=== PATIENT | female | born 1945 | race Caucasian/White ===

== ENCOUNTER 2019-07-01 10:56 | Emergency (ER) | payer MEDICARE, BC ==
[~2019-07-01] VITALS: Ht 167.6 cm; Wt 64.0 kg
--- NOTE | 2019-07-01 11:14 | NUR ---
X-RAY AT BEDSIDE.
--- NOTE | 2019-07-01 11:14 | NUR ---
[id number] C/O R WRIST PAIN/SWELLING, GLF LAST NIGHT. PT STATES, MISSED DIALYSIS YESTERDAY. PATIENT A/OX4, BREATHING EVEN AND UNLABORED, NO SOB NOTED, NEEDS ATTENDED.
[2019-07-01 11:27] LABS: BASOPHILS % (AUTO) 0.5 % (0.0-2.0); EOSINOPHILS % (AUTO) 0.1 % (0.0-6.0); HEMATOCRIT 34 % (33-45); LYMPHOCYTES # (AUTO) 0.7 /CMM (0.8-4.8); LYMPHOCYTES % (AUTO) 12.7 % (20.0-44.0); MEAN CORPUSCULAR HGB CONC 33 g/dl (31.0-36.0); MEAN CORPUSCULAR VOLUME 99 fL (82-100); MONOCYTES # (AUTO) 0.9 /CMM (0.1-1.30); NEUTROPHILS # (AUTO) 4.1 /CMM (1.8-8.9); NEUTROPHILS % (AUTO) 71.7 % (43.0-81.0); PLATELET COUNT (AUTO) 104 /CMM (150-450); WHITE BLOOD COUNT (AUTO) 5.8 K/uL (4.3-11.0)
[2019-07-01 11:46] LABS: CALCIUM, SERUM 9.7 mg/dL (8.5-10.1); CARBON DIOXIDE 27 mmol/L (21-32); CHLORIDE 95 mmol/L (98-107); GLUCOSE 104 mg/dL (74-106); POTASSIUM 5.1 mmol/L (3.5-5.1); SODIUM SERUM 137 mmol/L (136-145); UREA NITROGEN, BLOOD 77 mg/dL (7-18)
[2019-07-01 11:50] LABS: CREATININE 12.1 mg/dL (0.6-1.3)
--- NOTE | 2019-07-01 12:24 | NUR ---
ARRANGED BLS TRANSPORT TO HOME WITH [facility], TRIP NUMBER: [id number], ETA 20 MINS.
[2019-07-01] MEDS ORDERED: ACETAMINOPHEN ES 500 MG TABLET ONE (12:28)
[2019-07-01] MEDS ORDERED: ACETAMINOPHEN ES 500 MG TABLET PO ONE (13:00)
[2019-07-01 13:08] VITALS: BP 158/92
--- NOTE | 2019-07-01 13:08 | NUR ---
IV removed. Catheter intact and site benign. Pressure and 4x4 applied to site. No bleeding noted.Patient discharged to home in stable condition. Written and verbal after care instructions given. Patient verbalizes understanding of instruction.
== END 2019-07-01 13:09 | disposition home or self-care (01) ==
LOC: ER 10:58
DX: S60.211A Contusion of right wrist, initial encounter (principal); I12.0 Hypertensive chronic kidney disease with stage 5 chronic kidney disease or end stage renal disease; N18.6 End stage renal disease; Z99.2 Dependence on renal dialysis; Z88.8 Allergy status to other drugs, medicaments and biological substances; W01.0XXA Fall on same level from slipping, tripping and stumbling without subsequent striking against object, initial encounter; Y93.89 Activity, other specified; Y92.002 Bathroom of unspecified non-institutional (private) residence as the place of occurrence of the external cause; Y99.8 Other external cause status
CPT/HCPCS: 36415; 71045-TC; 73110; 80048-TC; 85025-TC